=== PATIENT | male | born 1990 | race Caucasian/White ===

== ENCOUNTER → 2020-11-02 | Outpatient (CLI) | payer OTHER ==
[2020-11-02 16:12] LABS: HEMATOCRIT 39.8 % (42.0-52.0); HEMOGLOBIN 13.9 g/dl (13.5-17.5); MEAN CORPUSCULAR HEMOGLOBIN 30.8 pg (27.0-33.0); MEAN CORPUSCULAR HGB CONC 34.9 g/dl (32.0-36.5); MEAN CORPUSCULAR VOLUME 88.1 fl (80.0-96.0); PLATELET COUNT, AUTOMATED 192 10^3/uL (150-450); RED BLOOD COUNT 4.52 10^6/uL (4.30-6.10); WHITE BLOOD COUNT 5.1 10^3/uL (4.0-10.0)
[2020-11-02 18:45] LABS: ALBUMIN 4.3 GM/DL (3.2-5.2); ALT/SGPT 86 U/L (12-78); BILIRUBIN,TOTAL 0.6 MG/DL (0.2-1.0); BLOOD UREA NITROGEN 20 MG/DL (7-18); CARBON DIOXIDE LEVEL 29 MEQ/L (21-32); CHLORIDE LEVEL 101 MEQ/L (98-107); CREATININE FOR GFR 1.18 MG/DL (0.70-1.30); GLOMERULAR FILTRATION RATE > 60.0 (>60); GLUCOSE, FASTING 87 MG/DL (70-100); HEPATITIS B SURFACE ANTIGEN NEGATIVE (NEGATIVE); POTASSIUM SERUM 4.4 MEQ/L (3.5-5.1); SODIUM LEVEL 134 MEQ/L (136-145); TOTAL PROTEIN 7.3 GM/DL (6.4-8.2)
[2020-11-02 19:04] LABS: HIV 1&2 SCREEN CENTAUR NEGATIVE (NEGATIVE)
[2020-11-02 19:12] LABS: HEPATITIS C VIRUS ABY INDEX > 11.0 INDEX (<0.8)
[2020-11-02 19:12] LABS: CHLAMYDIA DNA AMPLIFICATION NEGATIVE (NEGATIVE); GC DNA AMPLIFICATION NEGATIVE (NEGATIVE)
--- NOTE | 2020-11-02 23:15 | ECGEPIP ---
[facility] Test Date: 2020-11-02 Pat Name: AUBRIE GONZALEZ Department: Room: - Gender: Male Lead Enterprise Architect: TIFFANY : 1990 Requested By: Marlon Spencer Order Number: [id number] Reading MD: Pj Head Measurements Intervals [place] Rate: 66 P: 61 WV: 178 QRS: 27 QRSD: 88 T: 31 QT: 384 QTc: 402 Interpretive Statements Normal sinus rhythm, Within normal limits. No prior ECG available for comparison at the time of interpretation. Electronically Signed on 11-02-2020 23:15:13 EDT by Pj Head
== END ==
LOC: M LAB 10-16 13:42
PROVIDERS: ATTEND Physician Assistant Medical
DX: B18.2 Chronic viral hepatitis C (principal); B16.9 Acute hepatitis B without delta-agent and without hepatic coma; B15.9 Hepatitis A without hepatic coma

== ENCOUNTER → 2021-01-05 | Outpatient (CLI) | payer OTHER | LOC: M LAB 12:40 | PROVIDERS: ATTEND Physician Assistant Medical | DX: B18.2 Chronic viral hepatitis C (principal) ==

== ENCOUNTER → 2021-01-06 | Outpatient (REF) | payer OTHER ==
[2021-01-06 13:45] LABS: APPEARANCE, URINE HAZY (CLEAR); BACTERIA, URINE AUTO NEGATIVE (NEGATIVE); BILIRUBIN, URINE AUTO NEGATIVE (NEGATIVE); BLOOD, URINE BLOOD NEGATIVE (NEGATIVE); COLOR, URINE YELLOW (YELLOW); GLUCOSE, URINE (UA) AUTO NEGATIVE (NEGATIVE); KETONE, URINE AUTO NEGATIVE (NEGATIVE); LEUKOCYTE ESTERASE, URINE AUTO NEGATIVE (NEGATIVE); MUCUS, URINE SMALL (NEGATIVE); NITRITE, URINE AUTO NEGATIVE (NEGATIVE); PROTEIN, URINE AUTO NEGATIVE (NEGATIVE); RBC, URINE AUTO 0 /HPF (0-3); SPECIFIC GRAVITY URINE AUTO 1.023 (1.002-1.035); SQUAMOUS EPITHELIAL CELL UR AU 0 /HPF (0-6); UROBILINOGEN, URINE AUTO 0.2 mg/dL (0.0-2.0); WBC, URINE AUTO 1 /HPF (0-3)
== END ==
LOC: M SMT 12:47
PROVIDERS: ATTEND Nurse Practitioner Women's Health
DX: R39.15 Urgency of urination (principal)

== ENCOUNTER 2022-01-10 21:15 | Emergency (ER) | payer OTHER ==
[~2022-01-10] VITALS: Ht 185.4 cm; Wt 86.3 kg
[2022-01-10 22:20] VITALS: BP 145/86
== END 2022-01-10 22:28 | disposition home or self-care (01) ==
LOC: M ED 21:15
DX: S60.222A Contusion of left hand, initial encounter (principal); W22.8XXA Striking against or struck by other objects, initial encounter; Y92.009 Unspecified place in unspecified non-institutional (private) residence as the place of occurrence of the external cause

== ENCOUNTER 2022-01-24 14:36 | Inpatient (IN) | payer OTHER ==
[~2022-01-24] VITALS: Ht 185.4 cm; Wt 89.0 kg
[2022-01-24 15:12] LABS: HEMATOCRIT 41.6 % (42.0-52.0); HEMOGLOBIN 14.2 g/dl (13.5-17.5); MEAN CORPUSCULAR HEMOGLOBIN 30.1 pg (27.0-33.0); MEAN CORPUSCULAR HGB CONC 34.1 g/dl (32.0-36.5); MEAN CORPUSCULAR VOLUME 88.1 fl (80.0-96.0); PLATELET COUNT, AUTOMATED 230 10^3/uL (150-450); RED BLOOD COUNT 4.72 10^6/uL (4.30-6.10); WHITE BLOOD COUNT 8.4 10^3/uL (4.0-10.0)
[2022-01-24 16:05] LABS: RSV AMPLIFICATION NEGATIVE (NEGATIVE)
[2022-01-24] MEDS ORDERED: LORazepam 1 MG TAB PO ONE (16:15)
[2022-01-24] MEDS ORDERED: NICOTINE 21MG/24HR 1 EA TRANSDERMAL TD ONE (16:20)
[2022-01-24 16:25] LABS: ACETAMINOPHEN LEVEL < 2.0 UG/ML (10.0-30.0); ALT/SGPT 38 U/L (12-78); BILIRUBIN,DIRECT < 0.1 MG/DL (0.0-0.2); BILIRUBIN,TOTAL 0.3 MG/DL (0.2-1.0); BLOOD UREA NITROGEN 20 MG/DL (7-18); CALCIUM LEVEL 9.3 MG/DL (8.5-10.1); CARBON DIOXIDE LEVEL 25 MEQ/L (21-32); CHLORIDE LEVEL 102 MEQ/L (98-107); CREATININE FOR GFR 1.08 MG/DL (0.70-1.30); ETHYL ALCOHOL (ETHANOL) < 0.003 % (0.000-0.010); GLOMERULAR FILTRATION RATE > 60.0 (>60); GLUCOSE, FASTING 109 MG/DL (70-100); POTASSIUM SERUM 4.4 MEQ/L (3.5-5.1); SALICYLATE LEVEL < 1.7 MG/DL (5.0-30.0); SODIUM LEVEL 134 MEQ/L (136-145); TOTAL PROTEIN 7.3 GM/DL (6.4-8.2)
[2022-01-24 17:14] LABS: AMPHETAMINES LEVEL URINE NEGATIVE (NEGATIVE); BARBITURATES URINE NEGATIVE (NEGATIVE); BENZODIAZEPINES URINE NEGATIVE (NEGATIVE); CANNABINOIDS URINE NEGATIVE (NEGATIVE); COCAINE METABOLITE URINE NEGATIVE (NEGATIVE); METHADONE URINE POSITIVE (NEGATIVE); OPIATES URINE NEGATIVE (NEGATIVE); PHENCYCLIDINE URINE NEGATIVE (NEGATIVE)
[2022-01-24] MEDS ORDERED: NICOTINE POLACRILEX 2 MG GUM PO ONE (20:00)
[2022-01-25] MEDS ORDERED: NICOTINE POLACRILEX 2 MG GUM PO ONE (01:00)
[2022-01-25] MEDS ORDERED: IBUP-1720 PO (13:20)
[2022-01-25] MEDS ORDERED: VITMTA PO (13:20)
[2022-01-25] MEDS ORDERED: GABA600T4 PO (13:20)
[2022-01-25] MEDS ORDERED: CETI-24 PO (13:20)
[2022-01-25] MEDS ORDERED: TRAZ1TAB14 PO (13:20)
[2022-01-25] MEDS ORDERED: CVS10CAP7 PO (13:20)
[2022-01-25] MEDS ORDERED: VYVA40CA3 PO (13:20)
[2022-01-25] MEDS ORDERED: HOME MED LIST COMPLETE! XX SCH (13:25)
[2022-01-25] MEDS ORDERED: GABAPENTIN 300 MG CAP PO SCH ×2 (13:30→14:00)
[2022-01-25] MEDS ORDERED: NICOTINE 21MG/24HR 1 EA TRANSDERMAL TD SCH (13:30)
[2022-01-25] MEDS ORDERED: MAALOX 30 ML SUSP *UDC PO PRN (13:45)
[2022-01-25] MEDS ORDERED: traZODone 50 MG TAB PO PRN (13:45)
[2022-01-25] MEDS ORDERED: METH10CO3 PO (13:46)
[2022-01-25] MEDS ORDERED: LORazepam 1 MG TAB PO PRN (14:00)
[2022-01-25] MEDS ORDERED: MOM 30ML SUSPENSION UDC PO PRN (14:00)
[2022-01-25] MEDS: GABAPENTIN 300 MG CAP PO SCH (21:54)
[2022-01-25] MEDS: traZODone 50 MG TAB PO PRN (21:54)
[2022-01-26] MEDS: GABAPENTIN 300 MG CAP PO SCH ×3 (08:10→20:43)
[2022-01-26] MEDS: MULTIVITAMINS/MINERALS THERAP 1 TAB PO SCH (08:10)
[2022-01-26] MEDS: CETIRIZINE (ZyrTEC) 10 MG TAB PO SCH (08:10)
[2022-01-26] MEDS: NICOTINE 21MG/24HR 1 EA TRANSDERMAL TD SCH (08:10)
[2022-01-26] MEDS: METHADONE 10MG TAB PO SCH (08:11)
[2022-01-27 06:20] VITALS: BP 127/60
[2022-01-27] MEDS: MULTIVITAMINS/MINERALS THERAP 1 TAB PO SCH (08:11)
[2022-01-27] MEDS: CETIRIZINE (ZyrTEC) 10 MG TAB PO SCH (08:13)
[2022-01-27] MEDS: GABAPENTIN 300 MG CAP PO SCH ×3 (08:14→19:53)
[2022-01-27] MEDS: METHADONE 10MG TAB PO SCH (08:14)
[2022-01-27] MEDS: NICOTINE 21MG/24HR 1 EA TRANSDERMAL TD SCH (08:15)
[2022-01-27] MEDS: ACETAMINOPHEN TAB 650MG DOSE (2X325MG) PO PRN (16:35)
[2022-01-27 18:24] VITALS: BP 140/90
[2022-01-27] MEDS: traZODone 50 MG TAB PO PRN (20:18)
[2022-01-28 06:28] VITALS: BP 134/80
[2022-01-28] MEDS: NICOTINE 21MG/24HR 1 EA TRANSDERMAL TD SCH (08:00)
[2022-01-28] MEDS: CETIRIZINE (ZyrTEC) 10 MG TAB PO SCH (08:01)
[2022-01-28] MEDS: GABAPENTIN 300 MG CAP PO SCH ×3 (08:01→20:16)
[2022-01-28] MEDS: MULTIVITAMINS/MINERALS THERAP 1 TAB PO SCH (08:01)
[2022-01-28] MEDS: METHADONE 10MG TAB PO SCH (08:01)
[2022-01-28] MEDS: OLANZapine 5 MG TAB PO SCH ×3 (09:00→20:16)
[2022-01-28] MEDS: traZODone 50 MG TAB PO PRN (20:16)
[2022-01-29 06:16] VITALS: BP 153/72
[2022-01-29] MEDS: MULTIVITAMINS/MINERALS THERAP 1 TAB PO SCH (08:07)
[2022-01-29] MEDS: CETIRIZINE (ZyrTEC) 10 MG TAB PO SCH (08:07)
[2022-01-29] MEDS: OLANZapine 5 MG TAB PO SCH ×2 (08:07→20:08)
[2022-01-29] MEDS: GABAPENTIN 300 MG CAP PO SCH ×3 (08:07→20:08)
[2022-01-29] MEDS: METHADONE 10MG TAB PO SCH (08:07)
[2022-01-29] MEDS: NICOTINE 21MG/24HR 1 EA TRANSDERMAL TD SCH (08:08)
[2022-01-29 16:08] VITALS: BP 131/76
[2022-01-29] MEDS: traZODone 50 MG TAB PO PRN (20:08)
[2022-01-30] MEDS: ACETAMINOPHEN TAB 650MG DOSE (2X325MG) PO PRN (01:46)
[2022-01-30] MEDS ORDERED: IBUPROFEN 600MG TAB PO ONE (02:00)
[2022-01-30] MEDS: METHADONE 10MG TAB PO SCH (07:34)
[2022-01-30] MEDS: CETIRIZINE (ZyrTEC) 10 MG TAB PO SCH (07:35)
[2022-01-30] MEDS: GABAPENTIN 300 MG CAP PO SCH ×3 (07:35→20:02)
[2022-01-30] MEDS: MULTIVITAMINS/MINERALS THERAP 1 TAB PO SCH (07:35)
[2022-01-30] MEDS: OLANZapine 5 MG TAB PO SCH ×2 (07:35→20:01)
[2022-01-30] MEDS: NICOTINE 21MG/24HR 1 EA TRANSDERMAL TD SCH (07:36)
[2022-01-30] MEDS: NICOTINE POLACRILEX 2 MG GUM PO PRN ×2 (14:29→18:26)
[2022-01-30] MEDS: IBUPROFEN 400MG TAB PO PRN (14:30)
[2022-01-30] MEDS: traZODone 50 MG TAB PO PRN (20:02)
[2022-01-31 06:16] VITALS: BP 155/77
[2022-01-31] MEDS: MULTIVITAMINS/MINERALS THERAP 1 TAB PO SCH (08:12)
[2022-01-31] MEDS: OLANZapine 5 MG TAB PO SCH (08:12)
[2022-01-31] MEDS: CETIRIZINE (ZyrTEC) 10 MG TAB PO SCH (08:12)
[2022-01-31] MEDS: GABAPENTIN 300 MG CAP PO SCH ×3 (08:12→20:06)
[2022-01-31] MEDS: METHADONE 10MG TAB PO SCH (08:12)
[2022-01-31] MEDS: NICOTINE POLACRILEX 2 MG GUM PO PRN ×3 (08:15→17:25)
[2022-01-31] MEDS: IBUPROFEN 400MG TAB PO PRN (10:05)
[2022-01-31 17:27] VITALS: BP 133/78
[2022-01-31] MEDS: OLANZapine 10 MG TAB PO SCH (20:06)
[2022-01-31] MEDS: traZODone 50 MG TAB PO PRN (20:06)
[2022-02-01] MEDS: IBUPROFEN 400MG TAB PO PRN ×2 (00:14→14:01)
[2022-02-01] MEDS: NICOTINE POLACRILEX 2 MG GUM PO PRN ×4 (05:25→19:18)
[2022-02-01 06:58] VITALS: BP 137/83
[2022-02-01] MEDS: MULTIVITAMINS/MINERALS THERAP 1 TAB PO SCH (08:14)
[2022-02-01] MEDS: OLANZapine 10 MG TAB PO SCH ×2 (08:14→20:00)
[2022-02-01] MEDS: GABAPENTIN 300 MG CAP PO SCH ×3 (08:14→20:01)
[2022-02-01] MEDS: CETIRIZINE (ZyrTEC) 10 MG TAB PO SCH (08:14)
[2022-02-01] MEDS: METHADONE 10MG TAB PO SCH (08:14)
[2022-02-01 08:47] VITALS: BP 137/83
[2022-02-01] MEDS: OLANZapine ORAL DISINTEGRATING TAB 5MG PO PRN (16:47)
[2022-02-01] MEDS: LORazepam 1 MG TAB PO PRN (17:33)
[2022-02-01 18:05] VITALS: BP 139/73
[2022-02-02] MEDS: LORazepam 1 MG TAB PO PRN ×4 (03:19→23:59)
[2022-02-02] MEDS: NICOTINE POLACRILEX 2 MG GUM PO PRN ×2 (03:20→10:06)
[2022-02-02] MEDS: IBUPROFEN 400MG TAB PO PRN (05:35)
[2022-02-02] MEDS: BENZOCAINE 10% 9GM TUBE (ANBESOL) TOP PRN ×2 (05:38→21:12)
[2022-02-02 06:45] VITALS: BP 150/68
[2022-02-02] MEDS: METHADONE 10MG TAB PO SCH (08:18)
[2022-02-02] MEDS: MULTIVITAMINS/MINERALS THERAP 1 TAB PO SCH (08:18)
[2022-02-02] MEDS: OLANZapine 10 MG TAB PO SCH (08:18)
[2022-02-02] MEDS: GABAPENTIN 300 MG CAP PO SCH ×3 (08:18→20:49)
[2022-02-02] MEDS: CETIRIZINE (ZyrTEC) 10 MG TAB PO SCH (08:18)
[2022-02-02] MEDS: BENZTROPINE 1 MG TAB PO PRN (11:10)
[2022-02-02 15:57] LABS: BASO % 0.6 % (0.0-1.0); EOS # 0.2 10^3/uL (0.0-0.5); EOS % 3.4 % (0.0-3.0); HEMATOCRIT 40.6 % (42.0-52.0); HEMOGLOBIN 13.9 g/dl (13.5-17.5); LYMPH # 2.1 10^3/uL (1.5-5.0); MEAN CORPUSCULAR HEMOGLOBIN 30.3 pg (27.0-33.0); MEAN CORPUSCULAR HGB CONC 34.2 g/dl (32.0-36.5); MEAN CORPUSCULAR VOLUME 88.6 fl (80.0-96.0); MONO # 0.6 10^3/uL (0.0-0.8); MONO % 9.5 % (2.0-8.0); NEUTROPHILS # 3.7 10^3/uL (1.5-8.5); NEUTROPHILS % 55.2 % (36.0-66.0); PLATELET COUNT, AUTOMATED 196 10^3/uL (150-450); RED BLOOD COUNT 4.58 10^6/uL (4.30-6.10); WHITE BLOOD COUNT 6.7 10^3/uL (4.0-10.0)
[2022-02-02 16:21] LABS: ALBUMIN 4.2 GM/DL (3.2-5.2); ALT/SGPT 70 U/L (12-78); BILIRUBIN,TOTAL 0.4 MG/DL (0.2-1.0); BLOOD UREA NITROGEN 19 MG/DL (7-18); CALCIUM LEVEL 9.6 MG/DL (8.5-10.1); CARBON DIOXIDE LEVEL 28 MEQ/L (21-32); CHLORIDE LEVEL 103 MEQ/L (98-107); CREATININE FOR GFR 0.96 MG/DL (0.70-1.30); GLOMERULAR FILTRATION RATE > 60.0 (>60); GLUCOSE, FASTING 94 MG/DL (70-100); POTASSIUM SERUM 4.3 MEQ/L (3.5-5.1); SODIUM LEVEL 136 MEQ/L (136-145); TOTAL PROTEIN 7.7 GM/DL (6.4-8.2)
[2022-02-02] MEDS: NICOTINE 21MG/24HR 1 EA TRANSDERMAL TD PRN (16:24)
[2022-02-02 18:09] VITALS: BP 151/69
[2022-02-03] MEDS: MULTIVITAMINS/MINERALS THERAP 1 TAB PO SCH (07:41)
[2022-02-03] MEDS: METHADONE 10MG TAB PO SCH (07:42)
[2022-02-03] MEDS: GABAPENTIN 300 MG CAP PO SCH ×3 (07:42→20:03)
[2022-02-03] MEDS: CETIRIZINE (ZyrTEC) 10 MG TAB PO SCH (07:42)
[2022-02-03] MEDS ORDERED: risperiDONE 1 MG TAB PO SCH (09:00)
[2022-02-03] MEDS: hydrOXYzine 50 MG TAB PO PRN (09:55)
[2022-02-03] MEDS: BENZTROPINE 1 MG TAB PO PRN (10:19)
[2022-02-03] MEDS: NICOTINE 21MG/24HR 1 EA TRANSDERMAL TD PRN (10:19)
[2022-02-03] MEDS: IBUPROFEN 400MG TAB PO PRN ×2 (11:45→21:47)
[2022-02-03 18:03] VITALS: BP 147/74
[2022-02-04] MEDS: OLANZapine ORAL DISINTEGRATING TAB 5MG PO PRN ×4 (01:25→22:08)
[2022-02-04] MEDS: ACETAMINOPHEN TAB 650MG DOSE (2X325MG) PO PRN ×2 (01:53→17:29)
[2022-02-04] MEDS: traZODone 50 MG TAB PO PRN ×2 (01:55→22:08)
[2022-02-04 06:30] VITALS: BP 135/62
[2022-02-04] MEDS: MULTIVITAMINS/MINERALS THERAP 1 TAB PO SCH (08:24)
[2022-02-04] MEDS: METHADONE 10MG TAB PO SCH (08:24)
[2022-02-04] MEDS: CETIRIZINE (ZyrTEC) 10 MG TAB PO SCH (08:24)
[2022-02-04] MEDS: GABAPENTIN 300 MG CAP PO SCH ×3 (08:24→20:22)
[2022-02-04] MEDS: NICOTINE 21MG/24HR 1 EA TRANSDERMAL TD PRN (08:27)
[2022-02-04] MEDS: IBUPROFEN 400MG TAB PO PRN (14:08)
[2022-02-04 18:17] VITALS: BP 143/90
[2022-02-04] MEDS: BENZOCAINE 10% 9GM TUBE (ANBESOL) TOP PRN (23:01)
[2022-02-05] MEDS: GABAPENTIN 300 MG CAP PO SCH ×3 (08:45→20:45)
[2022-02-05] MEDS: CETIRIZINE (ZyrTEC) 10 MG TAB PO SCH (08:45)
[2022-02-05] MEDS: MULTIVITAMINS/MINERALS THERAP 1 TAB PO SCH (08:45)
[2022-02-05] MEDS: METHADONE 10MG TAB PO SCH (08:45)
[2022-02-05] MEDS: NICOTINE 21MG/24HR 1 EA TRANSDERMAL TD PRN (08:46)
[2022-02-05] MEDS: OLANZapine ORAL DISINTEGRATING TAB 5MG PO PRN ×3 (08:48→20:45)
[2022-02-05] MEDS: IBUPROFEN 400MG TAB PO PRN (11:27)
[2022-02-05 18:12] VITALS: BP 138/70
[2022-02-06] MEDS: OLANZapine ORAL DISINTEGRATING TAB 5MG PO PRN ×3 (06:16→20:36)
[2022-02-06] MEDS: IBUPROFEN 400MG TAB PO PRN ×2 (06:17→14:14)
[2022-02-06 06:35] VITALS: BP 135/77
[2022-02-06] MEDS: ACETAMINOPHEN TAB 650MG DOSE (2X325MG) PO PRN ×2 (07:17→16:13)
[2022-02-06] MEDS: BENZOCAINE 10% 9GM TUBE (ANBESOL) TOP PRN ×3 (07:19→16:17)
[2022-02-06] MEDS ORDERED: LORazepam 2 MG TAB PO ONE (08:00)
[2022-02-06] MEDS ORDERED: OLANZapine ORAL DISINTEGRATING TAB 5MG PO ONE (08:00)
[2022-02-06] MEDS: METHADONE 10MG TAB PO SCH (08:01)
[2022-02-06] MEDS: CETIRIZINE (ZyrTEC) 10 MG TAB PO SCH (08:02)
[2022-02-06] MEDS: MULTIVITAMINS/MINERALS THERAP 1 TAB PO SCH (08:02)
[2022-02-06] MEDS: GABAPENTIN 300 MG CAP PO SCH ×3 (08:02→20:36)
[2022-02-06] MEDS: NICOTINE 21MG/24HR 1 EA TRANSDERMAL TD PRN (08:06)
[2022-02-06 18:15] VITALS: BP 124/68
[2022-02-06] MEDS: traZODone 50 MG TAB PO PRN (20:36)
[2022-02-07] MEDS: IBUPROFEN 400MG TAB PO PRN ×2 (00:59→09:40)
[2022-02-07] MEDS: hydrOXYzine 50 MG TAB PO PRN (01:00)
[2022-02-07] MEDS: BENZOCAINE 10% 9GM TUBE (ANBESOL) TOP PRN ×3 (01:00→17:57)
[2022-02-07] MEDS: OLANZapine ORAL DISINTEGRATING TAB 5MG PO PRN ×3 (06:06→20:05)
[2022-02-07] MEDS: ACETAMINOPHEN TAB 650MG DOSE (2X325MG) PO PRN ×3 (06:07→17:56)
[2022-02-07 06:20] VITALS: BP 130/74
[2022-02-07] MEDS: GABAPENTIN 300 MG CAP PO SCH ×3 (07:49→20:06)
[2022-02-07] MEDS: MULTIVITAMINS/MINERALS THERAP 1 TAB PO SCH (07:49)
[2022-02-07] MEDS: CETIRIZINE (ZyrTEC) 10 MG TAB PO SCH (07:49)
[2022-02-07] MEDS: METHADONE 10MG TAB PO SCH (07:49)
[2022-02-07] MEDS: NICOTINE 21MG/24HR 1 EA TRANSDERMAL TD PRN (10:44)
[2022-02-07] MEDS ORDERED: LORazepam 2 MG/ML VIAL IM ONE (14:15)
[2022-02-07] MEDS ORDERED: diphenhydrAMINE 50MG CAP PO ONE (14:15)
[2022-02-07] MEDS ORDERED: LORazepam 2 MG TAB PO ONE (14:15)
[2022-02-07] MEDS ORDERED: diphenhydrAMINE 50MG/ML VIAL (J1200) IM ONE (14:15)
[2022-02-07] MEDS ORDERED: HALOPERIDOL 5MG/ML VIAL (J1630 PER 1) IM PRN (14:15)
[2022-02-07] MEDS: traZODone 50 MG TAB PO PRN (20:05)
[2022-02-08] MEDS: METHADONE 10MG TAB PO SCH (08:37)
[2022-02-08] MEDS: GABAPENTIN 300 MG CAP PO SCH ×3 (08:37→20:16)
[2022-02-08] MEDS: CETIRIZINE (ZyrTEC) 10 MG TAB PO SCH (08:37)
[2022-02-08] MEDS: MULTIVITAMINS/MINERALS THERAP 1 TAB PO SCH (08:37)
[2022-02-08] MEDS: IBUPROFEN 400MG TAB PO PRN ×2 (08:38→16:34)
[2022-02-08] MEDS: NICOTINE 21MG/24HR 1 EA TRANSDERMAL TD PRN (09:20)
[2022-02-08] MEDS: BENZOCAINE 10% 9GM TUBE (ANBESOL) TOP PRN ×2 (09:20→12:43)
[2022-02-08] MEDS: OLANZapine ORAL DISINTEGRATING TAB 5MG PO PRN ×2 (10:43→16:33)
[2022-02-08] MEDS: ACETAMINOPHEN TAB 650MG DOSE (2X325MG) PO PRN (12:42)
[2022-02-08] MEDS: traZODone 50 MG TAB PO PRN (20:16)
[2022-02-09] MEDS: MULTIVITAMINS/MINERALS THERAP 1 TAB PO SCH (08:10)
[2022-02-09] MEDS: CETIRIZINE (ZyrTEC) 10 MG TAB PO SCH (08:10)
[2022-02-09] MEDS: METHADONE 10MG TAB PO SCH (08:10)
[2022-02-09] MEDS: GABAPENTIN 300 MG CAP PO SCH ×3 (08:11→20:07)
[2022-02-09 12:28] LABS: ALT/SGPT 84 U/L (12-78); BILIRUBIN,DIRECT < 0.1 MG/DL (0.0-0.2); BILIRUBIN,TOTAL 0.4 MG/DL (0.2-1.0); TOTAL PROTEIN 7.6 GM/DL (6.4-8.2)
[2022-02-09] MEDS: IBUPROFEN 400MG TAB PO PRN ×2 (14:31→15:08)
[2022-02-09] MEDS: OLANZapine ORAL DISINTEGRATING TAB 5MG PO PRN (14:32)
[2022-02-09] MEDS: hydrOXYzine 50 MG TAB PO PRN (16:55)
[2022-02-09] MEDS ORDERED: LORazepam 2 MG TAB PO ONE (16:55)
[2022-02-09] MEDS ORDERED: diphenhydrAMINE 50MG CAP PO ONE (16:55)
[2022-02-09] MEDS: traZODone 50 MG TAB PO PRN (20:07)
[2022-02-10 06:45] VITALS: BP 134/65
[2022-02-10] MEDS: GABAPENTIN 300 MG CAP PO SCH ×3 (08:46→20:01)
[2022-02-10] MEDS: MULTIVITAMINS/MINERALS THERAP 1 TAB PO SCH (08:47)
[2022-02-10] MEDS: METHADONE 10MG TAB PO SCH (08:47)
[2022-02-10] MEDS: CETIRIZINE (ZyrTEC) 10 MG TAB PO SCH (08:47)
[2022-02-10] MEDS: OLANZapine ORAL DISINTEGRATING TAB 5MG PO PRN ×2 (11:23→18:13)
[2022-02-10] MEDS: IBUPROFEN 400MG TAB PO PRN ×2 (11:23→20:42)
[2022-02-10] MEDS: BENZOCAINE 10% 9GM TUBE (ANBESOL) TOP PRN (11:24)
[2022-02-10 18:15] VITALS: BP 130/71
[2022-02-10] MEDS: traZODone 50 MG TAB PO PRN (20:00)
[2022-02-10] MEDS: hydrOXYzine 50 MG TAB PO PRN (20:42)
[2022-02-11 06:31] VITALS: BP 146/87
[2022-02-11] MEDS: CETIRIZINE (ZyrTEC) 10 MG TAB PO SCH (07:53)
[2022-02-11] MEDS: MULTIVITAMINS/MINERALS THERAP 1 TAB PO SCH (07:53)
[2022-02-11] MEDS: METHADONE 10MG TAB PO SCH (07:54)
[2022-02-11] MEDS: GABAPENTIN 300 MG CAP PO SCH ×3 (07:54→20:04)
[2022-02-11] MEDS: NICOTINE 21MG/24HR 1 EA TRANSDERMAL TD PRN (09:19)
[2022-02-11] MEDS: OLANZapine ORAL DISINTEGRATING TAB 5MG PO PRN (11:27)
[2022-02-11] MEDS: IBUPROFEN 400MG TAB PO PRN (11:27)
[2022-02-11] MEDS: hydrOXYzine 50 MG TAB PO PRN (12:19)
[2022-02-11] MEDS: ACETAMINOPHEN TAB 650MG DOSE (2X325MG) PO PRN ×2 (12:19→19:22)
[2022-02-11] MEDS: BENZOCAINE 10% 9GM TUBE (ANBESOL) TOP PRN (13:43)
[2022-02-11] MEDS: traZODone 50 MG TAB PO PRN (20:04)
[2022-02-12 06:23] VITALS: BP 126/83
[2022-02-12] MEDS: METHADONE 10MG TAB PO SCH (08:07)
[2022-02-12] MEDS: GABAPENTIN 300 MG CAP PO SCH ×3 (08:07→20:21)
[2022-02-12] MEDS: MULTIVITAMINS/MINERALS THERAP 1 TAB PO SCH (08:07)
[2022-02-12] MEDS: CETIRIZINE (ZyrTEC) 10 MG TAB PO SCH (08:07)
[2022-02-12] MEDS: ACETAMINOPHEN TAB 650MG DOSE (2X325MG) PO PRN (12:32)
[2022-02-12] MEDS: OLANZapine ORAL DISINTEGRATING TAB 5MG PO PRN (12:32)
[2022-02-12] MEDS: NICOTINE 21MG/24HR 1 EA TRANSDERMAL TD PRN (12:47)
[2022-02-12] MEDS: BENZTROPINE 1 MG TAB PO PRN (14:12)
[2022-02-12 16:21] VITALS: BP 131/72
[2022-02-12] MEDS: traZODone 50 MG TAB PO PRN (20:21)
[2022-02-13 06:48] VITALS: BP 178/78
[2022-02-13] MEDS: GABAPENTIN 300 MG CAP PO SCH ×3 (08:55→19:58)
[2022-02-13] MEDS: METHADONE 10MG TAB PO SCH (08:55)
[2022-02-13] MEDS: CETIRIZINE (ZyrTEC) 10 MG TAB PO SCH (08:55)
[2022-02-13] MEDS: MULTIVITAMINS/MINERALS THERAP 1 TAB PO SCH (08:55)
[2022-02-13] MEDS: OLANZapine ORAL DISINTEGRATING TAB 5MG PO PRN (11:59)
[2022-02-13] MEDS: BENZTROPINE 1 MG TAB PO PRN (11:59)
[2022-02-13] MEDS: NICOTINE 21MG/24HR 1 EA TRANSDERMAL TD PRN (12:34)
[2022-02-13] MEDS ORDERED: LORazepam 1 MG TAB PO ONE (13:00)
[2022-02-13] MEDS: ACETAMINOPHEN TAB 650MG DOSE (2X325MG) PO PRN (15:11)
[2022-02-13 16:21] VITALS: BP 125/66
[2022-02-13] MEDS: traZODone 50 MG TAB PO PRN (20:13)
[2022-02-14 06:42] VITALS: BP 163/78
[2022-02-14] MEDS: CETIRIZINE (ZyrTEC) 10 MG TAB PO SCH (08:23)
[2022-02-14] MEDS: METHADONE 10MG TAB PO SCH (08:24)
[2022-02-14] MEDS: GABAPENTIN 300 MG CAP PO SCH ×3 (08:24→20:04)
[2022-02-14] MEDS: MULTIVITAMINS/MINERALS THERAP 1 TAB PO SCH (08:24)
[2022-02-14] MEDS: NICOTINE 21MG/24HR 1 EA TRANSDERMAL TD PRN (08:25)
[2022-02-14] MEDS: ACETAMINOPHEN TAB 650MG DOSE (2X325MG) PO PRN (11:39)
[2022-02-14] MEDS: OLANZapine ORAL DISINTEGRATING TAB 5MG PO PRN (11:40)
[2022-02-14] MEDS: IBUPROFEN 400MG TAB PO PRN (13:46)
[2022-02-14] MEDS: traZODone 50 MG TAB PO PRN (20:04)
[2022-02-15] MEDS: MULTIVITAMINS/MINERALS THERAP 1 TAB PO SCH (08:02)
[2022-02-15] MEDS: GABAPENTIN 300 MG CAP PO SCH ×3 (08:02→20:03)
[2022-02-15] MEDS: METHADONE 10MG TAB PO SCH (08:02)
[2022-02-15] MEDS: CETIRIZINE (ZyrTEC) 10 MG TAB PO SCH (08:03)
[2022-02-15] MEDS: NICOTINE 21MG/24HR 1 EA TRANSDERMAL TD PRN (08:03)
[2022-02-15] MEDS: IBUPROFEN 400MG TAB PO PRN (12:40)
[2022-02-15 18:22] VITALS: BP 131/83
[2022-02-15] MEDS: traZODone 50 MG TAB PO PRN (20:02)
[2022-02-16] MEDS ORDERED: TRAZ-252 PO (08:26)
[2022-02-16] MEDS ORDERED: HALO10TA20 PO (08:26)
[2022-02-16] MEDS ORDERED: HALO5TAB33 PO (08:26)
[2022-02-16] MEDS ORDERED: BENZ-52 PO (08:26)
[2022-02-16] MEDS ORDERED: GABA600T4 PO (08:29)
[2022-02-16] MEDS: METHADONE 10MG TAB PO SCH (09:06)
[2022-02-16] MEDS: MULTIVITAMINS/MINERALS THERAP 1 TAB PO SCH (09:06)
[2022-02-16] MEDS: GABAPENTIN 300 MG CAP PO SCH (09:06)
[2022-02-16] MEDS: CETIRIZINE (ZyrTEC) 10 MG TAB PO SCH (09:06)
[2022-02-17] MEDS ORDERED: GABA600T4 PO (20:24)
== END 2022-02-16 11:43 | disposition home or self-care (01) | DRG 751 ==
LOC: M ED 14:36 → M ED INP 01-25 13:44 → M PSY 01-25 17:09
PROVIDERS: ADMIT Psychiatry & Neurology Psychiatry; ATTEND Psychiatry & Neurology Psychiatry
DX: F29 Unspecified psychosis not due to a substance or known physiological condition (principal); F11.20 Opioid dependence, uncomplicated; F95.2 Tourette's disorder; F32.9 Major depressive disorder, single episode, unspecified; F41.1 Generalized anxiety disorder; F17.200 Nicotine dependence, unspecified, uncomplicated; F10.21 Alcohol dependence, in remission; F60.89 Other specific personality disorders; K08.89 Other specified disorders of teeth and supporting structures; K02.9 Dental caries, unspecified; Z65.3 Problems related to other legal circumstances; Z88.0 Allergy status to penicillin; Z79.899 Other long term (current) drug therapy

== ENCOUNTER 2022-03-21 10:18 | Emergency (ER) | payer OTHER ==
[~2022-03-21] VITALS: Ht 185.4 cm; Wt 82.6 kg
[~2022-03-21 10:18] MED LIST: BENZ-52 PO; CETI-24 PO; CVS10CAP7 PO; GABA600T4 PO; HALO10TA20 PO; HALO5TAB33 PO; IBUP-1720 PO; METH10CO3 PO; TRAZ-252 PO; TRAZ1TAB14 PO; VITMTA PO; VYVA40CA3 PO
[2022-03-21] MEDS ORDERED: HYDR-3363 (10:58)
[2022-03-21 13:07] LABS: HEMATOCRIT 42.9 % (42.0-52.0); HEMOGLOBIN 14.8 g/dl (13.5-17.5); MEAN CORPUSCULAR HEMOGLOBIN 29.6 pg (27.0-33.0); MEAN CORPUSCULAR HGB CONC 34.5 g/dl (32.0-36.5); MEAN CORPUSCULAR VOLUME 85.8 fl (80.0-96.0); PLATELET COUNT, AUTOMATED 187 10^3/uL (150-450); WHITE BLOOD COUNT 9.6 10^3/uL (4.0-10.0)
[2022-03-21 13:41] LABS: RSV AMPLIFICATION NEGATIVE (NEGATIVE)
[2022-03-21] MEDS ORDERED: ISOVUE-370 76% 100ML VIAL As Ordered ONE (13:45)
[2022-03-21] MEDS ORDERED: CLINDAMYCIN 900 MG in IV 1 EA IV STA (14:27)
[2022-03-21] MEDS ORDERED: CEFU50TA PO (15:46)
[2022-03-21] MEDS ORDERED: CLEO300C2 PO (15:46)
[2022-03-21 16:00] VITALS: BP 118/59
== END 2022-03-21 16:01 | disposition home or self-care (01) ==
LOC: M ED 10:18
DX: L03.211 Cellulitis of face (principal); K04.7 Periapical abscess without sinus; R59.0 Localized enlarged lymph nodes; Z88.1 Allergy status to other antibiotic agents; Z79.899 Other long term (current) drug therapy

== ENCOUNTER 2022-04-09 05:02 | Emergency (ER) | payer OTHER ==
[~2022-04-09] VITALS: Ht 185.4 cm; Wt 78.3 kg
[~2022-04-09 05:02] MED LIST changes: +CEFU50TA PO; +CLEO300C2 PO; +HYDR-3363
[2022-04-09 05:15] VITALS: BP 162/79
== END 2022-04-09 08:29 | disposition left against medical advice (07) ==
LOC: EDBD 05:02 → M ED 05:02
DX: Z53.21 Procedure and treatment not carried out due to patient leaving prior to being seen by health care provider (principal)

== ENCOUNTER 2022-07-05 18:06 | Emergency (ER) | payer OTHER ==
[~2022-07-05] VITALS: Ht 185.4 cm; Wt 79.0 kg
[~2022-07-05 18:06] MED LIST changes: -BENZ-52 PO; +BENZ1TAB5 PO
[2022-07-05] MEDS ORDERED: BUPR1TAB52 (18:15)
[2022-07-05] MEDS ORDERED: CETI-24 (18:15)
[2022-07-05] MEDS ORDERED: MULT-90 (18:15)
[2022-07-05 22:37] VITALS: BP 126/81
== END 2022-07-05 22:43 | disposition home or self-care (01) ==
LOC: M ED 18:06
DX: S90.852A Superficial foreign body, left foot, initial encounter (principal); F42.9 Obsessive-compulsive disorder, unspecified; F33.1 Major depressive disorder, recurrent, moderate; Z88.1 Allergy status to other antibiotic agents; Z79.891 Long term (current) use of opiate analgesic; Z79.899 Other long term (current) drug therapy

== ENCOUNTER 2022-07-18 22:33 | Emergency (ER) | payer OTHER ==
[~2022-07-18] VITALS: Ht 190.5 cm; Wt 79.0 kg
[~2022-07-18 22:33] MED LIST changes: +BUPR1TAB52; +CETI-24; +MULT-90
[2022-07-18] MEDS ORDERED: LORazepam 1 MG TAB PO STA (23:34)
[2022-07-19] MEDS ORDERED: OLANZapine ORAL DISINTEGRATING TAB 5MG PO ONE (00:05)
[2022-07-19 01:18] LABS: HEMATOCRIT 41.7 % (42.0-52.0); HEMOGLOBIN 14.3 g/dl (13.5-17.5); MEAN CORPUSCULAR HEMOGLOBIN 29.4 pg (27.0-33.0); MEAN CORPUSCULAR HGB CONC 34.3 g/dl (32.0-36.5); MEAN CORPUSCULAR VOLUME 85.6 fl (80.0-96.0); PLATELET COUNT, AUTOMATED 286 10^3/uL (150-450); RED BLOOD COUNT 4.87 10^6/uL (4.30-6.10); WHITE BLOOD COUNT 16.8 10^3/uL (4.0-10.0)
[2022-07-19 01:40] LABS: ETHYL ALCOHOL (ETHANOL) < 0.003 % (0.000-0.010)
[2022-07-19 01:42] LABS: ACETAMINOPHEN LEVEL < 2.0 UG/ML (10.0-20.0); ALBUMIN 5.2 G/DL (3.2-5.2); ALKALINE PHOSPHATASE 116 U/L (46-116); ALT/SGPT 32 U/L (7.0-40); AST/SGOT 33 U/L (<34); BILIRUBIN,DIRECT 0.3 MG/DL (<0.4); BILIRUBIN,TOTAL 0.7 MG/DL (0.3-1.2); BLOOD UREA NITROGEN 12 MG/DL (9-23); CALCIUM LEVEL 10.3 MG/DL (8.5-10.1); CARBON DIOXIDE LEVEL 30 MMOL/L (20-31); CHLORIDE LEVEL 102 MMOL/L (98-107); CREATININE FOR GFR 1.06 MG/DL (0.70-1.30); GLOMERULAR FILTRATION RATE > 60.0 (>60); GLUCOSE, FASTING 106 MG/DL (60-100); SALICYLATE LEVEL < 3.0 MG/DL (<30); SODIUM LEVEL 141 MMOL/L (136-145); TOTAL PROTEIN 8.1 G/DL (5.7-8.2)
[2022-07-19 01:44] LABS: THYROID STIMULATING HORMONE 0.752 uIU/ML (0.55-4.78)
[2022-07-19 04:09] LABS: BARBITURATES URINE NEGATIVE (NEGATIVE); BENZODIAZEPINES URINE NEGATIVE (NEGATIVE); COCAINE METABOLITE URINE NEGATIVE (NEGATIVE); OPIATES URINE NEGATIVE (NEGATIVE); PHENCYCLIDINE URINE NEGATIVE (NEGATIVE)
[2022-07-19 04:10] LABS: CANNABINOIDS URINE NEGATIVE (NEGATIVE)
[2022-07-19 04:12] LABS: AMPHETAMINES LEVEL URINE POSITIVE (NEGATIVE); METHADONE URINE POSITIVE (NEGATIVE)
[2022-07-19 05:18] VITALS: BP 135/81
== END 2022-07-19 06:17 | disposition home or self-care (01) ==
LOC: M ED 22:33
DX: F19.159 Other psychoactive substance abuse with psychoactive substance-induced psychotic disorder, unspecified (principal); F32.A Depression, unspecified; F41.9 Anxiety disorder, unspecified; F17.200 Nicotine dependence, unspecified, uncomplicated; Z88.1 Allergy status to other antibiotic agents; Z79.899 Other long term (current) drug therapy